=== PATIENT | female | born 1995 | race African-American/Black ===

== ENCOUNTER 2018-02-21 04:29 | Observation (INO) | payer MEDICAID, OTHER ==
[~2018-02-21] VITALS: Ht 160 cm; Wt 71.7 kg
== END 2018-02-21 10:00 | disposition home or self-care (01) ==
LOC: L&D 04:29
PROVIDERS: ADMIT Obstetrics & Gynecology; ATTEND Obstetrics & Gynecology
DX: O26.893 Other specified pregnancy related conditions, third trimester (principal); R10.2 Pelvic and perineal pain; O30.003 Twin pregnancy, unspecified number of placenta and unspecified number of amniotic sacs, third trimester; Z3A.30 30 weeks gestation of pregnancy
CPT/HCPCS: 76805; 76810; 99281; G0378

== ENCOUNTER 2018-04-05 21:49 | Observation (INO) | payer MEDICAID ==
[~2018-04-05] VITALS: Ht 160 cm; Wt 85.7 kg
[2018-04-05] MEDS ORDERED: PREN-118 PO (22:11)
[2018-04-05 22:23] LABS: CLARITY URINE CLEAR (CLEAR); COLOR URINE YELLOW (YELLOW); KETONES URINE NEGATIVE (NEGATIVE); LEUKOCYTE ESTERASE URINE 3+ (NEGATIVE); NITRITE URINE NEGATIVE (NEGATIVE); OCCULT BLOOD URINE NEGATIVE (NEGATIVE); PROTEIN URINE NEGATIVE (NEGATIVE); SPECIFIC GRAVITY URINE 1.004 (1.005-1.030); UROBILINOGEN URINE 0.2 E.U./dL (0.2-1.0)
[2018-04-05] MEDS ORDERED: LACTATED RINGERS 1,000 ML IV SCH (22:30)
[2018-04-05 23:18] LABS: *BARBITURATES SCREEN URINE NEGATIVE (NEGATIVE); *BENZODIAZEPINES SCREEN URINE NEGATIVE (NEGATIVE); *COCAINE SCREEN URINE NEGATIVE (NEGATIVE); METHADONE URINE SCREEN NEGATIVE (NEGATIVE); OPIATES URINE SCREEN NEGATIVE (NEGATIVE)
[2018-04-05 23:19] LABS: PHENCYCLIDINE URINE SCREEN NEGATIVE (NEGATIVE)
[2018-04-05 23:46] LABS: *AMPHETAMINES SCREEN URINE PRESUMTIVE POSITIVE (NEGATIVE); CANNABINOID URINE SCREEN PRESUMTIVE POSITIVE (NEGATIVE)
[2018-04-06] MEDS ORDERED: AMPICILLIN 2,000 MG in SODIUM CHLORIDE 0.9% 100 ML IV NR ×2
[2018-04-06] MEDS ORDERED: TERBUTALINE SULFATE 1MG/ML VIAL SUBCUT PRN
[2018-04-06] MEDS ORDERED: ACETAMINOPHEN 500MG TABLET PO SCH
== END 2018-04-06 08:00 | disposition home or self-care (01) ==
LOC: L&D 21:49
PROVIDERS: ADMIT Obstetrics & Gynecology; ATTEND Obstetrics & Gynecology
DX: O62.9 Abnormality of forces of labor, unspecified (principal); Z3A.38 38 weeks gestation of pregnancy
CPT/HCPCS: 76815; 76818; 80305; 80307; 80349; 81003; 82731; 96365; 96372; 99281; G0378; J0290; J3105; J7120; 96360; 96361; J7050